=== PATIENT | male | born 1965 | race Caucasian/White ===

== ENCOUNTER 2017-07-22 00:13 | Emergency (ER) | payer MEDICAID ==
[~2017-07-22] VITALS: Ht 180.3 cm; Wt 72.6 kg
--- NOTE | 2017-07-22 00:45 | NUR ---
Pt is received alert, responsive as he came c/o Urinary diffculty over 1year but has got haeder to urinated for the past 4days now. His care continue as awaits MD orders.
--- NOTE | 2017-07-22 01:09 | NUR ---
Pt remain alert, responsive as Urine is sent to Lab for culture as ordered. His care continue as waits MD orders.
[2017-07-22 01:20] LABS: *BILIRUBIN,URIN NEGATIVE (NEGATIVE); *BLOOD, URINE Trace-intact (NEGATIVE); *CLARITY,URINE CLOUDY (CLEAR); *COLOR,URINE YELLOW (YELLOW); *KETONES,URINE NEGATIVE (NEGATIVE); *PROTEIN,URINE NEGATIVE (NEGATIVE); *UROBILINOGEN,URINE 0.2 E.U./dl (NORMAL); LEUKOCYTE ESTERASE ,URINE 2+ (NEGATIVE); NITRITE, URINE POSITIVE (NEGATIVE); UGLUCOSE NEGATIVE (NEGATIVE)
[2017-07-22 01:43] LABS: BACTERIA,URINE MANY /HPF (NONE SEEN); SQUAMOUS EPITHELIAL CELL,UR FEW /HPF (NONE SEEN)
[2017-07-22] MEDS ORDERED: PHENAZOPYRIDINE HCL 100 MG TABLET PO ONE (02:00)
[2017-07-22] MEDS ORDERED: SULFAMETH/TRIMETH 800/160 MG TABLET PO ONE (02:00)
--- NOTE | 2017-07-22 02:05 | NUR ---
Patient discharged to home in stable conditon. Written and verbal after care instructions given. Patient verbalizes understanding of instructions. Ambulated from ER with stable gait. All belongings with patient.
[2017-07-22 02:07] VITALS: BP 131/67
[2017-07-22] MEDS ORDERED: PHENAZOPYRIDINE HCL 100 MG TABLET ONE (02:17)
[2017-07-22] MEDS ORDERED: SULFAMETH/TRIMETH 800/160 MG TABLET ONE (02:17)
== END 2017-07-22 02:08 | disposition other institution (70) ==
LOC: ER 00:18
DX: N39.0 Urinary tract infection, site not specified (principal)
CPT/HCPCS: 87077; 87086; A4663